=== PATIENT | female | born 1990 | race Caucasian/White ===

== ENCOUNTER → 2017-02-21 | Outpatient (CLI) | payer OTHER ==
--- NOTE | 2017-02-21 14:13 | RADIOLOGY REPORT (SQ) ---
EXAM DESCRIPTION: NM HIDA SCAN WITH CCK COMPLETED DATE/TIME: 02/21/2017 1:58 pm REASON FOR STUDY: RUQ ABDOMINAL PAIN R10.11 RIGHT UPPER QUADRANT PAIN COMPARISON: None. RADIONUCLIDE AND DOSE: DOSAGE RADIONUCLIDE: 5.4 millicuries Tc99m Mebrofenin. DOSAGE CCK: 1.8 micrograms. DOSAGE MORPHINE: Not required. The route of agent administration: Intravenous TECHNIQUE: Serial imaging right upper quadrant up to 60 minutes following injection of radionuclide. CCK injected after gallbladder visualized. LIMITATIONS: None. FINDINGS: LIVER: Normal visualization without areas of photopenia. INTRA AND EXTRAHEPATIC BILE DUCTS: Normal accumulation of activity. GALLBLADDER: Normal visualization. Calculated Ejection Fraction of 5%. Below the normal value of 35% or greater. PHYSICAL RESPONSE: Patients presenting complaint was reproduced. OTHER: No other significant finding. IMPRESSION: LOW GALLBLADDER EJECTION FRACTION. EVIDENCE FOR BILIARY DYSKINESIS. NO CYSTIC OR COMMO N DUCT OBSTRUCTION. TECHNICAL DOCUMENTATION: JOB ID: [id number] [employer]- All Rights Reserved
== END ==
LOC: RAD 10:35
PROVIDERS: ATTEND Physician Assistant
DX: R10.11 Right upper quadrant pain (principal)
CPT/HCPCS: 78227; A9537; Q9969; J2805

== ENCOUNTER 2017-03-01 06:04 | Day surgery (SDC) | payer OTHER ==
[2017-02-28 10:21] LABS: HEMATOCRIT 40.4 % (36.0-47.0); HEMOGLOBIN 13.8 g/dL (12.0-15.5); MEAN CORPUSCULAR HEMOGLOBIN 29.6 pg (27.0-33.4); MEAN CORPUSCULAR HGB CONC 34.1 g/dL (32.0-36.0); MEAN CORPUSCULAR VOLUME 87 fl (80-97); RED BLOOD COUNT 4.65 10^6/uL (3.72-5.28); RED CELL DISTRIBUTION WIDTH 14.1 % (11.5-14.0); WHITE BLOOD COUNT 4.5 10^3/uL (4.0-10.5)
[2017-02-28 11:11] LABS: ALANINE AMINOTRANSFERASE 43 U/L (9-52); ALBUMIN 4.3 g/dL (3.5-5.0); ALKALINE PHOSPHATASE 76 U/L (38-126); ANION GAP 11 (5-19); ASPARTATE AMINO TRANSFERASE 23 U/L (14-36); BILIRUBIN,DIRECT 0.3 mg/dL (0.0-0.4); BILIRUBIN,TOTAL 0.5 mg/dL (0.2-1.3); BLOOD UREA NITROGEN 12 mg/dL (7-20); CALCIUM 9.6 mg/dL (8.4-10.2); CARBON DIOXIDE 27 mmol/L (22-30); CHLORIDE 103 mmol/L (98-107); CREATININE RESULT 0.76 mg/dL (0.52-1.25); GLUCOSE 68 mg/dL (75-110); POTASSIUM 4.2 mmol/L (3.6-5.0); SODIUM 140.9 mmol/L (137-145); TOTAL PROTEIN 7.6 g/dL (6.3-8.2)
[~2017-03-01 06:04] MED LIST: ACETAMINOPHEN 325 MG TABLET PO PRN; LACTATED RINGERS 1000 ML IV PRN; LEVOFLOXACIN 500 MG/D5W RTU 500 MG/100 ML RTUPB IV PRN; LIDOCAINE 0.5% INJ-PF (5 MG/ML) 50 ML SDV SUBCUT PRN
[2017-03-01] MEDS ORDERED: FENTANYL CITRATE INJ/PF 250 MCG/5 ML AMPULE ONE ×2 (06:33→07:46)
[2017-03-01] MEDS ORDERED: FENTANYL CITRATE INJ/PF 100 MCG/2 ML AMPUL ONE ×3 (06:33→07:46)
[2017-03-01] MEDS ORDERED: ACETAMINOPHEN 0 ML IV ONE (06:34)
[2017-03-01] MEDS ORDERED: MORPHINE SULFATE 10 MG/ML INJ ONE (06:34)
[2017-03-01] MEDS ORDERED: MIDAZOLAM 2 MG/2 ML INJ ONE ×2 (06:34→07:46)
[2017-03-01] MEDS ORDERED: PROPOFOL INJ 200 MG/20 ML VIAL IV ONE ×2 (06:34→07:47)
[2017-03-01] MEDS ORDERED: BUPIVACAINE HCL 0.25 % INJ/PF (2.5 MG/1 ML) 30 ML VIAL ONE (07:23)
[2017-03-01] MEDS ORDERED: EPHEDRINE SULFATE INJ 50 MG/1 ML AMPULE ONE (07:46)
[2017-03-01] MEDS ORDERED: ACETAMINOPHEN 100 ML IV ONE (07:47)
[2017-03-01] MEDS ORDERED: SCOPOLAMINE HYDROBROMIDE 1.5 MG PATCH.TD72 ONE (07:53)
[2017-03-01] MEDS ORDERED: FAMOTIDINE INJ/PF 20 MG/2 ML SDV IV ONE (07:54)
[2017-03-01] MEDS ORDERED: VECURONIUM BROMIDE INJ 10 MG VIAL IV ONE (08:13)
[2017-03-01] MEDS ORDERED: SUCCINYLCHOLINE CHLORIDE INJ 200 MG/10 ML VIAL ONE (08:13)
[2017-03-01] MEDS ORDERED: ONDANSETRON HCL INJ/PF 4 MG/2 ML SDV ONE (08:13)
[2017-03-01] MEDS ORDERED: DEXAMETHASONE SOD PHOSPHATE INJ 4 MG/1 ML VIAL ONE (08:13)
[2017-03-01] MEDS ORDERED: NEOSTIGMINE METHYLSULFATE 10 MG/10 ML VIAL ONE (08:13)
[2017-03-01] MEDS ORDERED: GLYCOPYRROLATE INJ 0.4 MG/2 ML VIAL ONE (08:13)
[2017-03-01] MEDS ORDERED: LIDOCAINE 2% INJ-PF (20 MG/ML) 10 ML AMPUL ONE (08:13)
[2017-03-01] MEDS ORDERED: DIPHENHYDRAMINE HCL 50 MG/ML VIAL IV PRN (08:57)
[2017-03-01] MEDS ORDERED: FENTANYL CITRATE INJ/PF 100 MCG/2 ML AMPUL IV PRN ×3 (08:57)
[2017-03-01] MEDS ORDERED: ONDANSETRON HCL INJ/PF 4 MG/2 ML SDV IV PRN ×2 (08:57→09:35)
--- NOTE | 2017-03-01 09:32 | Operative Report ---
Operative Report DATE OF SURGERY: 03/01/17 PREOPERATIVE DIAGNOSIS: Biliary dyskinesia POSTOPERATIVE DIAGNOSIS: Biliary dyskinesia, chronic cholecystitis OPERATION: Laparoscopic cholecystectomy SURGEON: TONY HOWARD ANESTHESIA: GA TISSUE REMOVED OR ALTERED: Gallbladder COMPLICATIONS: None ESTIMATED BLOOD LOSS: 10 cc INTRAOPERATIVE FINDINGS: Distended gallbladder with mild edema of the gallbladder wall PROCEDURE: Informed consent was obtained. Patient was brought to the operating room placed operating table in supine position. After satisfactory induction of general anesthesia, patient's abdomen was prepped and draped in usual sterile fashion. A infraumbilical midline incision was made and dissection carried down to the fascia the peritoneal cavity entered without difficulty. Potter trocar was inserted. Pneumoperitoneum produced good patient toleration. 5 mm trocar was placed in the subxiphoid location.Two 5 mm trochars were placed in the right subcostal location. There were omental adhesions at the lower midline. The appendix appeared normal. The right ovary was visualized and appeared normal. I could not visualize the left ovary due to the adhesions. The abdominal wall appeared normal other than the adhesions. The liver appeared normal. The gallbladder appeared distended and its wall had evidence of edema. The gallbladder was grasped and retracted cephalad over the dome of the liver. The infundibulum of the gallbladder was grasped retracted laterally and inferiorly thus exposing calot's triangle. The cystic duct gallbladder junction was clearly identified and the cystic duct was clipped and divided. Cystic artery was likewise taken. The gallbladder was taken off the gallbladder bed using the hook electrocautery technique. The gallbladder was removed with an Endobag through the Potter trocar site fascial defect. There was no bile spillage during the case. There was no stone spillage during the case. Hemostasis appeared excellent. All trochars were removed under the direct vision a laparoscope to ensure hemostasis. Of note, the operative field was lightly irrigated at the end of the case and the irrigant aspirated out. Irrigation fluid was perfectly clear at the end of the case. The Potter trocar site fascial defect was closed with interrupted Vicryl sutures. All skin incisions were closed with subcuticular interrupted Monocryl sutures. Marcaine was injected at the port sites. Patient tolerated procedure well no apparent complications and was taken to the recovery area in stable condition.
--- NOTE | 2017-03-01 09:34 | PDOC DISCHARGE SUMMARY ---
Discharge Summary (SDC) - Discharge Final Diagnosis: Chronic cholecystitis. Biliary dyskinesia. Date of Surgery: 03/01/17 Discharge Date: 03/01/17 Condition: Good Treatment or Instructions: Underwent laparoscopic cholecystectomy. May discharge patient home when met discharge criteria. Follow-up with me in 2 weeks. Stay active but avoid strenuous activity. May shower tomorrow night. Keep Steri-Strips on. Prescriptions: Oxycodone HCl/Acetaminophen [Percocet 5-325 mg Tablet] 1 - 2 tab PO ASDIR PRN # 25 tablet PRN Reason: Discharge Diet: As Tolerated - Low-fat diet Discharge Activity: Activity As Tolerated - Stay active but avoid strenuous activity. Report the Following to Your Physician Immediately: Yellow Skin, Fever over 101 Degrees, Unusual Bleeding, Redness, Drainage-Foul Smelling
[2017-03-01] MEDS ORDERED: OXYCODONE-ACETAMINOPHEN 5-325 MG TABLET PO PRN (09:35)
[2017-03-01] MEDS ORDERED: RINGERS SOLUTION,LACTATED 1,000 ML IV PRN (09:35)
[2017-03-01] MEDS ORDERED: METOCLOPRAMIDE HCL INJ/PF 10 MG/2 ML SDV ONE (10:00)
[2017-03-01] MEDS ORDERED: PROMETHAZINE HCL INJ 25 MG/1 ML VIAL ONE (10:45)
[2017-03-01] MEDS ORDERED: IBUPROFEN INJ 800 MG/8 ML VIAL IV ONE (10:45)
[2017-03-01] MEDS ORDERED: SIMETHICONE 80 MG TAB.CHEW PO ONE (11:00)
[2017-03-01] MEDS ORDERED: CITRIC ACID/SODIUM CITRATE ORAL SOLN 15 ML UDCUP ONE (11:30)
[2017-03-01] MEDS ORDERED: FAMOTIDINE 20 MG TABLET PO ONE (11:45)
[2017-03-01] MEDS ORDERED: IBUPROFEN 800 MG in NORMAL SALINE 250 ML IV ONE (12:00)
[2017-03-01 12:27] VITALS: BP 123/74
== END 2017-03-01 12:15 | disposition home or self-care (01) ==
LOC: OROUT 06:04
PROVIDERS: ATTEND Surgery
PROC: 0FT44ZZ Resection of Gallbladder, Percutaneous Endoscopic Approach (ICD-10-PCS; principal; 2017-03-01 08:15)
DX: K81.1 Chronic cholecystitis (principal); K82.8 Other specified diseases of gallbladder; Z88.0 Allergy status to penicillin
CPT/HCPCS: 36415; 85027; 81025; 80053; 88304 ×2; 47562; J2250; J1956; J1100; J3010; J3490 ×3; J2765; J2550; J0330; J2405; J7050; J2704; S0028; J0131; J1741; 790; J2270

== ENCOUNTER 2020-01-05 14:55 | Outpatient (CLI) | payer BC ==
[2020-01-05 15:43] LABS: URINE AMPHETAMINES SCREEN NEGATIVE; URINE BARBITURATES SCREEN NEGATIVE; URINE BENZODIAZEPINES SCREEN NEGATIVE; URINE COCAINE SCREEN NEGATIVE; URINE MARIJUANA (THC) SCREEN NEGATIVE; URINE METHADONE SCREEN NEGATIVE; URINE PHENCYCLIDINE SCREEN NEGATIVE
--- NOTE | 2020-01-05 15:45 | Non Stress Test Report ---
Non Stress Test Datetime Report Generated by CPN: 01/05/2020 15:45 DEMOGRAPHIC EGA NST: 37.1 INDICATION Indication for Study (NST) Other: IUP @ 37.1 VITAL SIGNS Temperature - NST: 98.3 Pulse - NST: 77 RESP - NST: 16 NBPSYS NST: 118 NBPDIA NST: 57 MONITORING Monitor Explained: Monitor Explained; Test Explained; Patient Verbalized Understanding Time on Monitor: 01/05/2020 15:14 Time off Monitor: 01/05/2020 15:42 NST Duration: 28 NST INTERVENTIONS NST Interventions: PO Hydration; Reposition Patient Physician Notified NST: NYudy Andersen, CNM BABY A: [id number] BABY A Movement : Present Contraction Frequency : 0 FHR Baseline : 125 Accelerations : 15X15 Decelerations : None Variability : Moderate 6-25bpm NST Review: Meets Criteria for Reactive NST NST Review and Verified By : Khalif Hays RN NST Results: Reactive NST REPORT Report Trigger: Send Report
[2020-01-05 16:33] LABS: APPEARANCE,URINE CLEAR; BILIRUBIN,URINE NEGATIVE (NEGATIVE); COLOR,URINE STRAW; GLUCOSE, URINE NEGATIVE (NEGATIVE); KETONES,URINE NEGATIVE (NEGATIVE); LEUKOCYTE ESTERASE,URINE NEGATIVE (NEGATIVE); NITRITE,URINE NEGATIVE (NEGATIVE); PROTEIN,URINE NEGATIVE (NEGATIVE); URINE SPECIFIC GRAVITY 1.003; UROBILINOGEN,URINE NEGATIVE mg/dL (<2.0)
== END 2020-01-05 16:10 | disposition home or self-care (01) ==
LOC: LC 14:55
PROVIDERS: ATTEND Obstetrics & Gynecology
DX: O36.8130 Decreased fetal movements, third trimester, not applicable or unspecified (principal); Z3A.37 37 weeks gestation of pregnancy
CPT/HCPCS: 59025; 80307; 81005

== ENCOUNTER 2020-01-19 05:04 | Inpatient (IN) | payer BC, OTHER ==
[2020-01-12 12:05] LABS: ABSOLUTE LYMPHOCYTES (AUTO) 1.4 10^3/uL (0.5-4.7); ABSOLUTE MONOCYTES (AUTO) 0.6 10^3/uL (0.1-1.4); ABSOLUTE NEUT (AUTO) 8.3 10^3/uL (1.7-8.2); BASOPHILS % (AUTO) 0.2 % (0-2); EOSINOPHILS % (AUTO) 0.5 % (0-6); HEMATOCRIT 34.8 % (36.0-47.0); LYMPHOCYTES % (AUTO) 13.2 % (13-45); MEAN CORPUSCULAR HEMOGLOBIN 29.9 pg (27.0-33.4); MEAN CORPUSCULAR HGB CONC 34.4 g/dL (32.0-36.0); MEAN CORPUSCULAR VOLUME 87 fl (80-97); MONOCYTES % (AUTO) 6.2 % (3-13); PLATELET COUNT 213 10^3/uL (150-450); RED CELL DISTRIBUTION WIDTH 14.7 % (11.5-14.0); SEGMENTED NEUTROPHILS % (AUTO) 79.9 % (42-78); TOTAL CELLS COUNTED % (AUTO) 100 %; WHITE BLOOD COUNT 10.3 10^3/uL (4.0-10.5)
[2020-01-12 12:27] LABS: APPEARANCE,URINE CLOUDY; BILIRUBIN,URINE NEGATIVE (NEGATIVE); COLOR,URINE YELLOW; GLUCOSE, URINE NEGATIVE (NEGATIVE); KETONES,URINE NEGATIVE (NEGATIVE); LEUKOCYTE ESTERASE,URINE LARGE (NEGATIVE); NITRITE,URINE NEGATIVE (NEGATIVE); PROTEIN,URINE NEGATIVE (NEGATIVE); URINE SPECIFIC GRAVITY 1.011; UROBILINOGEN,URINE NEGATIVE mg/dL (<2.0)
[2020-01-12 12:38] LABS: URINE AMPHETAMINES SCREEN NEGATIVE; URINE BARBITURATES SCREEN NEGATIVE; URINE BENZODIAZEPINES SCREEN NEGATIVE; URINE COCAINE SCREEN NEGATIVE; URINE MARIJUANA (THC) SCREEN NEGATIVE; URINE METHADONE SCREEN NEGATIVE; URINE PHENCYCLIDINE SCREEN NEGATIVE
[~2020-01-19 05:04] MED LIST changes: -ACETAMINOPHEN 325 MG TABLET PO PRN; +CEFAZOLIN 2 GM/D5W RTU 2 GM/50 ML RTUPB IV PRN; -LEVOFLOXACIN 500 MG/D5W RTU 500 MG/100 ML RTUPB IV PRN; +RINGERS SOLUTION,LACTATED 1,000 ML IV ONE
[2020-01-19] MEDS ORDERED: CEFAZOLIN 1 GM/D5W RTU 2 GM/100 ML RTUPB IV ONE (06:22)
[2020-01-19] MEDS ORDERED: KETOROLAC TROMETHAMINE INJ/PF 30 MG/1 ML SDV ONE (06:50)
[2020-01-19] MEDS ORDERED: OXYTOCIN 10 UNIT/ML VIAL ONE (06:50)
[2020-01-19] MEDS ORDERED: EPHEDRINE SULFATE INJ 50 MG/1 ML AMPULE ONE (06:51)
[2020-01-19] MEDS ORDERED: ACETAMINOPHEN 1,000 MG/100 ML RTUPB IV ONE (06:51)
[2020-01-19] MEDS ORDERED: MIDAZOLAM 2 MG/2 ML INJ ONE (06:51)
[2020-01-19] MEDS ORDERED: OXYTOCIN/0.9 % SODIUM CHLORIDE 30 UNIT/500 ML RTUINJ ONE (06:51)
[2020-01-19] MEDS ORDERED: FENTANYL CITRATE INJ/PF 100 MCG/2 ML AMPUL ONE (06:51)
[2020-01-19] MEDS ORDERED: ONDANSETRON HCL INJ/PF 4 MG/2 ML SDV ONE (06:51)
[2020-01-19] MEDS ORDERED: PHENYLEPHRINE HCL INJ/PF 10 MG/1 ML SDV ONE (06:51)
[2020-01-19] MEDS ORDERED: FENTANYL CITRATE INJ/PF 100 MCG/2 ML AMPUL IV PRN ×3 (08:25)
[2020-01-19] MEDS ORDERED: ONDANSETRON HCL INJ/PF 4 MG/2 ML SDV IV PRN (08:25)
[2020-01-19] MEDS ORDERED: DIPHENHYDRAMINE HCL 50 MG/ML VIAL IV PRN (08:25)
[2020-01-19] MEDS ORDERED: OXYCODONE-ACETAMINOPHEN 5-325 MG TABLET PO PRN ×2 (08:25)
[2020-01-19] MEDS ORDERED: PROMETHAZINE HCL INJ 25 MG/1 ML VIAL IV PRN ×3 (08:25→08:34)
[2020-01-19] MEDS ORDERED: MEPERIDINE HCL/PF INJ 25 MG/1 ML DISP.SYRIN IV PRN (08:25)
[2020-01-19] MEDS ORDERED: OXYTOCIN/0.9 % SODIUM CHLORIDE 30 UNIT/500 ML RTUINJ IV PRN (08:34)
[2020-01-19] MEDS ORDERED: ACETAMINOPHEN 325 MG TABLET PO PRN (08:34)
[2020-01-19] MEDS ORDERED: MEASLES,MUMPS&RUBELLA VACC/PF 0.5 ML VIAL SUBCUT PRN (08:34)
[2020-01-19] MEDS ORDERED: RINGERS SOLUTION,LACTATED 1,000 ML IV PRN (08:34)
[2020-01-19] MEDS ORDERED: MORPHINE SULFATE 10 MG/ML INJ IM PRN (08:34)
[2020-01-19] MEDS ORDERED: DIPH/PERTUSS(ACELL)/TETANUS VAC/PF 0.5 ML SYR (>=10YO) IM PRN (08:34)
--- NOTE | 2020-01-19 08:34 | PDOC DELIVERY SUMMARY ---
Delivery Summary - Maternal Hx : III Hx # Term Pregnancies: 3 PINO: 01/24/20 Ruptured Membranes: AROM Fluids: Clear - Delivery Labor: Not In Labor Presentation: Vertex Heart Rate Monitoring: Externally Uterine Contraction Monitoring: External Support Person Present: Yes : Scheduled, Repeat Placenta: Within Normal Limits Nuchal Cord: Yes
--- NOTE | 2020-01-19 08:38 | Operative Report ---
Operative Report DATE OF SURGERY: 01/19/20 PREOPERATIVE DIAGNOSIS: IUP term prior section desire for sterilization POSTOPERATIVE DIAGNOSIS: Same OPERATION: Repeat low transverse section bilateral tubal occlusion using Filshie clips and delivery of a viable male infant SURGEON: PAWAN BRIGGS ANESTHESIA: Spinal TISSUE REMOVED OR ALTERED: Placenta ESTIMATED BLOOD LOSS: Proximate thousand cc PROCEDURE: The patient was taken to the operating room where spinal anesthesia was obtained and found to be adequate. She was then prepped and draped in the normal sterile fashion and placed in the dorsal supine position with a leftward tilt. A Pfannenstiel skin incision was then made and carried through to the underlying layers of the fascia with the scalpel. The fascia was incised in the midline and the incision extended laterally with the Puente scissors. The superior aspect of the fascial incision was then grasped with [place] clamps elevated and the underlying rectus muscles dissected off bluntly. Attention was then turned to the inferior aspect of the fascial incision which in a similar fashion was grasped, tented up with [place] clamps, and the rectus muscles dissected off bluntly. The rectus muscles were then in the midline and the peritoneum at the amount identified and entered bluntly. The peritoneal incision was then extended superiorly and inferiorly with good visualization of the bladder. [The bladder blade was inserted and the vesicouterine peritoneum identified grasped with [place] pickups and entered sharply with the Metzenbaum scissors. His incision was then extended laterally with the Metzenbaum scissors and a bladder flap created digitally. The bladder blade was then reinserted and the lower uterine segment incised in a transverse fashion with the scalpel. The uterine incision was then extended bluntly. The bladder blade was removed and the infant's head was delivered from cephalic presentation atraumatically. The nose and mouth were suctioned and the cord doubly clamped and cut. And the infant was handed off to waiting pediatricians. The placenta was then delivered manully and the uterus exteriorized and cleared of all clots and debris. The uterine incision was then repaired with 1-0 Vicryl in a running locked fashion. A second layer of the same suture was used to obtain hemostasis via imbrication of the initial layer. The right fallopian tube was occluded using a Filshie clip in the proximal portion. Seizure was repeated on the left. The uterus was returned to the patient's abdomen. The gutters were cleared of all clots and debris. All operative sites were noted to be hemostatic. The fascia was reapproximated with 0 Vicryl in a running fashion from each lateral edge to the midline. The patient tolerated the procedure well. Sponge lap needle and instrument counts are correct -2. 2 g of Ancef were given prior to skin incision. The patient was taken to the recovery area awake and in stable condition.
[2020-01-19] MEDS ORDERED: NALBUPHINE HCL INJ 10 MG/1 ML AMPULE ONE (08:45)
[2020-01-19] MEDS ORDERED: MORPHINE SULFATE 10 MG/ML INJ ONE (10:02)
[2020-01-19] MEDS: OXYCODONE-ACETAMINOPHEN 5-325 MG TABLET PO PRN ×2 (10:50→15:17)
[2020-01-19] MEDS: DOCUSATE SODIUM 100 MG CAPSULE PO SCH ×2 (10:50→17:19)
[2020-01-19] MEDS: PRENATAL VITAMIN W DHA CAPSULE PO SCH (10:50)
[2020-01-19] MEDS: KETOROLAC TROMETHAMINE INJ/PF 30 MG/1 ML SDV IV SCH ×2 (15:17→21:19)
[2020-01-19] MEDS: SIMETHICONE 80 MG TAB.CHEW PO PRN (21:55)
[2020-01-20] MEDS: OXYCODONE-ACETAMINOPHEN 5-325 MG TABLET PO PRN ×4 (00:40→21:42)
[2020-01-20] MEDS: IBUPROFEN 800 MG TABLET PO SCH ×4 (05:34→23:11)
[2020-01-20 07:23] LABS: HEMATOCRIT 29.2 % (36.0-47.0); HEMOGLOBIN 10.1 g/dL (12.0-15.5); MEAN CORPUSCULAR HGB CONC 34.4 g/dL (32.0-36.0); MEAN CORPUSCULAR VOLUME 87 fl (80-97); PLATELET COUNT 181 10^3/uL (150-450); RED BLOOD COUNT 3.35 10^6/uL (3.72-5.28); RED CELL DISTRIBUTION WIDTH 14.9 % (11.5-14.0); WHITE BLOOD COUNT 9.8 10^3/uL (4.0-10.5)
[2020-01-20] MEDS: PRENATAL VITAMIN W DHA CAPSULE PO SCH (09:50)
[2020-01-20] MEDS: DOCUSATE SODIUM 100 MG CAPSULE PO SCH ×2 (09:50→17:23)
--- NOTE | 2020-01-20 11:10 | PDOC PROGRESS REPORT ---
Subjective-OB Progress Note for:: 01/20/20 Subjective: 29yo G3 now P3 s/p repeat with BTL ppd 1. Pt is ambulating, voiding without difficulty, passing gas. Reports pain well controlled with medication, no concerns at this time Physical Exam (OB) Vital Signs: Temp Pulse Resp BP Pulse Ox 98.0 F 83 16 150/65 H 98 01/20/20 07:27 01/20/20 07:27 01/20/20 07:27 01/20/20 07:27 01/20/20 07:27 Intake & Output 01/19/20 01/20/20 01/21/20 06:59 06:59 06:59 Intake Total 740 Output Total 3350 700 Balance -2610 -700 - General General Appearance: Appears well In distress: None - PIH/Pre-Eclampsia DTR's: 1 + Clonus: Negative Headache: Absent Epigastric Pain: No Visual Changes: No - Dressing Removed: Yes - pressure dressing Incision: Dressing - Lochia Lochia Amount: Scant < 10 ml Lochia Color: Rubra/Red - Abdomen Description: Soft, Round Fundal Description: Firm, Midline Fundal Height: u/u - u/2 - Respiratory Respiratory Status: No respiratory distress - Extremities Upper extremity: Normal inspection Lower extremities: Normal inspection - Neurological Cognition: Normal Orientation: AAOx4 - Psychological Associated symptoms: Normal affect, Normal mood Objective-Diagnostic Laboratory: 01/20/20 06:42 01/20/20 06:42 WBC 9.8 RBC 3.35 L Hgb 10.1 L Hct 29.2 L MCV 87 MCH 30.0 MCHC 34.4 RDW 14.9 H Plt Count 181 Assessment and Plan(PN) - Assessment and Plan (1) Status post repeat low transverse section Is this a current diagnosis for this admission?: Yes Plan: routine pp care (2) Acute blood loss anemia Is this a current diagnosis for this admission?: Yes Plan: increase dietary iron and FeSO4 BID (3) Admission for sterilization Is this a current diagnosis for this admission?: Yes Plan: routine pp care - Time Spent with Patient Time with patient: Less than 15 minutes Medications reviewed and adjusted accordingly: Yes - Disposition Anticipated Discharge: Home Within: within 24 hours
[2020-01-20] MEDS: SIMETHICONE 80 MG TAB.CHEW PO PRN (13:53)
[2020-01-21] MEDS: IBUPROFEN 800 MG TABLET PO SCH ×2 (05:47→12:28)
[2020-01-21] MEDS: PRENATAL VITAMIN W DHA CAPSULE PO SCH (10:27)
[2020-01-21] MEDS: SIMETHICONE 80 MG TAB.CHEW PO PRN (10:27)
[2020-01-21] MEDS: DOCUSATE SODIUM 100 MG CAPSULE PO SCH (10:27)
--- NOTE | 2020-01-21 11:34 | PDOC DISCHARGE SUMMARY ---
Impression - Admit/DC Date/PCP Admission Date/Primary Care Provider: 01/19/20 05:04 PAWAN BRIGGS MD Discharge Date: 01/21/20 - Discharge Diagnosis (1) Acute blood loss anemia Is this a current diagnosis for this admission?: Yes (2) Admission for sterilization Is this a current diagnosis for this admission?: Yes (3) Status post repeat low transverse section Is this a current diagnosis for this admission?: Yes - Additional Information Discharge Diet: Regular Discharge Activity: Balance Activity w/Rest, No Lifting/Push/Pulling, Pelvic Rest, No tub bath Referrals: PAWAN BRIGGS MD [Primary Care Provider] - Prescriptions: Ibuprofen [Motrin 800 mg Tablet] 800 mg PO Q8HP PRN #60 tablet PRN Reason: Oxycodone HCl/Acetaminophen [Percocet 5-325 mg Tablet] 1 tab PO Q4HP PRN #30 tablet PRN Reason: Home Medications: Vits96/Iron Fum/Folic [ Tablet] 1 each PO DAILY 01/05/20 Ibuprofen [Motrin 800 mg Tablet] 800 mg PO Q8HP PRN #60 tablet 01/21/20 Oxycodone HCl/Acetaminophen [Percocet 5-325 mg Tablet] 1 tab PO Q4HP PRN #30 tablet 01/21/20 Results Laboratory Results: WBC 9.8 10^3/uL (4.0-10.5) 01/20/20 06:42 RBC 3.35 10^6/uL (3.72-5.28) L 01/20/20 06:42 Hgb 10.1 g/dL (12.0-15.5) L 01/20/20 06:42 Hct 29.2 % (36.0-47.0) L 01/20/20 06:42 MCV 87 fl (80-97) 01/20/20 06:42 MCH 30.0 pg (27.0-33.4) 01/20/20 06:42 MCHC 34.4 g/dL (32.0-36.0) 01/20/20 06:42 RDW 14.9 % (11.5-14.0) H 01/20/20 06:42 Plt Count 181 10^3/uL (150-450) 01/20/20 06:42 Lymph % (Auto) 13.2 % (13-45) 01/12/20 11:19 [place] % (Auto) 6.2 % (3-13) 01/12/20 11:19 Eos % (Auto) 0.5 % (0-6) 01/12/20 11:19 Baso % (Auto) 0.2 % (0-2) 01/12/20 11:19 Absolute Neuts (auto) 8.3 10^3/uL (1.7-8.2) H 01/12/20 11:19 Absolute Lymphs (auto) 1.4 10^3/uL (0.5-4.7) 01/12/20 11:19 Absolute Monos (auto) 0.6 10^3/uL (0.1-1.4) 01/12/20 11:19 Absolute Eos (auto) 0.0 10^3/uL (0.0-0.6) 01/12/20 11:19 Absolute Basos (auto) 0.0 10^3/uL (0.0-0.2) 01/12/20 11:19 Seg Neutrophils % 79.9 % (42-78) H 01/12/20 11:19 Urine Color YELLOW 01/12/20 11:05 Urine Appearance CLOUDY 01/12/20 11:05 Urine pH 7.0 (5.0-9.0) 01/12/20 11:05 Ur Specific [place] 1.011 01/12/20 11:05 Urine Protein NEGATIVE mg/dL (NEGATIVE) 01/12/20 11:05 Urine Glucose (UA) NEGATIVE mg/dL (NEGATIVE) 01/12/20 11:05 Urine Ketones NEGATIVE mg/dL (NEGATIVE) 01/12/20 11:05 Urine Blood NEGATIVE (NEGATIVE) 01/12/20 11:05 Urine Nitrite NEGATIVE (NEGATIVE) 01/12/20 11:05 Urine Bilirubin NEGATIVE (NEGATIVE) 01/12/20 11:05 Urine Urobilinogen NEGATIVE mg/dL (<2.0) 01/12/20 11:05 Ur Leukocyte Esterase LARGE (NEGATIVE) H 01/12/20 11:05 Urine WBC (Auto) 7 /HPF 01/12/20 11:05 Urine RBC (Auto) 1 /HPF 01/12/20 11:05 Urine Bacteria (Auto) 3+ /HPF 01/12/20 11:05 Squamous Epi Cells Auto 54 /HPF 01/12/20 11:05 Urine Mucus (Auto) RARE /LPF 01/12/20 11:05 Urine Ascorbic Acid NEGATIVE (NEGATIVE) 01/12/20 11:05 Urine Opiates Screen NEGATIVE 01/12/20 11:08 Urine Methadone Screen NEGATIVE 01/12/20 11:08 Ur Barbiturates Screen NEGATIVE 01/12/20 11:08 Ur Phencyclidine Scrn NEGATIVE 01/12/20 11:08 Ur Amphetamines Screen NEGATIVE 01/12/20 11:08 U Benzodiazepines Scrn NEGATIVE 01/12/20 11:08 Urine Cocaine Screen NEGATIVE 01/12/20 11:08 U Marijuana (THC) Screen NEGATIVE 01/12/20 11:08 COVID-19 Source NASOPHARYNGEAL 01/12/20 11:15 COVID-19 (DORINDA) NOT DETECTED 01/12/20 11:15 Blood Type A POSITIVE 01/18/20 15:44 Antibody Screen NEGATIVE 01/18/20 15:44 Plan Plan of Treatment: follow up in 1 week at [facility] for incision check
[2020-01-21 11:44] VITALS: BP 118/68
== END 2020-01-21 14:35 | disposition home or self-care (01) | DRG 784 ==
LOC: 2S 05:04
PROVIDERS: ADMIT Obstetrics & Gynecology Gynecology; ATTEND Obstetrics & Gynecology Gynecology
PROC: 10D00Z1 Extraction of Products of Conception, Low, Open Approach (ICD-10-PCS; principal; 2020-01-19)
PROC: 0UL70CZ Occlusion of Bilateral Fallopian Tubes with Extraluminal Device, Open Approach (ICD-10-PCS; 2020-01-19)
DX: O34.211 Maternal care for low transverse scar from previous cesarean delivery (principal); Z30.2 Encounter for sterilization; D62 Acute posthemorrhagic anemia; O90.81 Anemia of the puerperium; Z79.899 Other long term (current) drug therapy; Z88.0 Allergy status to penicillin; Z03.818 Encounter for observation for suspected exposure to other biological agents ruled out; Z3A.39 39 weeks gestation of pregnancy
CPT/HCPCS: 1961; 36415; 59025; 80307; 81001; 85025; 85027; 86850; 86900; 86901; 87635; 90715; 94799; C9803; J0131; J1885; J2250; J2270; J2300; J2370; J2405; J2590; J3010; J3490; J7120